=== PATIENT | female | born 1975 | race Two or more races ===

== ENCOUNTER → 2024-08-12 07:18 | Outpatient (REF) | payer OTHER, SELFPAY | LOC: DHCBC/DCA 07:18 | PROVIDERS: ATTENDING PHYSICIAN Internal Medicine Interventional Cardiology; FAMILY PHYSICIAN Family Medicine | DX: I10 Essential (primary) hypertension (principal); I25.10 Atherosclerotic heart disease of native coronary artery without angina pectoris | CPT/HCPCS: 78452; 93017; A9500; J2785 ==

== ENCOUNTER → 2024-09-06 10:18 | Outpatient (REF) | payer OTHER, SELFPAY ==
--- NOTE | 2024-09-06 11:15 | CARDSERVLU ---
Echocardiogram with Lumason completed after protocol screening completed. Allergies verified.
Patent IV site: ___R AC__
IV site flushed with 0.9% NaCl pre and post administration.
Diluted bolus method utilized to enhance visualization of ventricular proctor.
Total volume given: __2__ mL
Patient tolerated all procedures well without complications.
== END ==
LOC: RCS 10:18
PROVIDERS: ATTENDING PHYSICIAN Internal Medicine Interventional Cardiology; FAMILY PHYSICIAN Family Medicine
DX: I10 Essential (primary) hypertension (principal); I25.10 Atherosclerotic heart disease of native coronary artery without angina pectoris
CPT/HCPCS: 93306; Q9950